=== PATIENT | female | born 1970 | race Caucasian/White ===

== ENCOUNTER 2016-12-09 17:58 | Emergency (ER) | payer MEDICAID ==
[~2016-12-09] VITALS: Wt 87.0 kg
[2016-12-09 19:33] LABS: URINE BLOOD (Dip) POC 1+ (NEGATIVE)
[2016-12-09 20:04] LABS: URINE BLOOD (Dip) POC 2+ (NEGATIVE)
--- NOTE | 2016-12-09 21:16 | RADRPT ---
PROCEDURE: CT abdomen and pelvis without intravenous contrast. CLINICAL INDICATION: Pain. TECHNIQUE: CT of the abdomen/pelvis was performed utilizing axial images with reconstructions in s agittal and coronal planes. The administered radiation dose is CTDI 18.5 mGy, DLP 1000 mGy-cm. COMPARISON: No pertinent prior examinations were submitted for comparison. FINDINGS: Visualized Chest: The visualized lung bases are clear. Abdomen: The liver, spleen, pancreas, gallbladder,and adrenal glands are unremarkable. The kidneys are without hydronephrosis. No definite urinary calculi are seen. There is no evidence of bowel obstruction. The appendix is normal. No intra-abdominal free air is seen. There is no evidence of intra-abdominal adenopathy or free fluid. Pelvis: There is no evidence of pelvic adenopathy. The uterus and ovaries are without enlargement. The uri nary bladder is unremarkable. There is trace pelvic free fluid. Osseous structures: Unremarkable. IMPRESSION: No acute findings. RPTAT: HIKT .Mj Fleming MD, MD Date Time Electronically viewed and signed by .Mj Fleming MD, on 12/09/2016 21:16 .T/
[2016-12-09] MEDS ORDERED: IBUP-1542 PO (21:20)
[2016-12-09] MEDS ORDERED: PHEN-538 PO (21:20)
[2016-12-09] MEDS ORDERED: CEPH-443 PO (21:20)
[2016-12-09] MEDS ORDERED: CEPHALEXIN 500 MG CAP PO ONE (21:30)
[2016-12-09] MEDS ORDERED: PHENAZOPYRIDINE 100 MG TAB PO ONE (21:30)
--- NOTE | 2016-12-09 21:30 | ERD ---
ER Documentation Chief Complaint Date/Time DATE: 12/09/16 TIME: 21:29 Chief Complaint HEMATURIA X 2 DAYS HPI This 46-year-old female presents with dysuria and hematuria for 2 days. She has nausea and low back pain but no fevers or vomiting or flank pain. She has a history of UTI and several years ago and states that it feels little different. She denies any right or left sided abdominal pain her pain is suprapubic. She denies vaginal discharge or bleeding per ROS All systems reviewed and are negative except as per history of present illness. Medications Home Meds Active Scripts Phenazopyridine Hcl* (Pyridium*) 200 Mg Tab, 200 MG PO TID Y for URINARY PAIN, # 6 TAB Prov:ANNE SAUCEDA MD 12/09/16 Cephalexin* (Keflex*) 500 Mg Capsule, 500 MG PO QID for 5 Days, CAP Prov:ANNE SAUCEDA MD 12/09/16 Ibuprofen* (Motrin*) 600 Mg Tab, 600 MG PO Q6, #15 TAB Prov:ANNE SAUCEDA MD 12/09/16 PMhx/Soc History of Surgery: No (cs) Anesthesia Reaction: No Hx Neurological Disorder: No Hx Respiratory Disorders: No Hx Cardiac Disorders: No Hx Psychiatric Problems: No Hx Alcohol Use: No Hx Substance Use: No Hx Tobacco Use: No Smoking Status: Never smoker Physical Exam Vitals Vital Signs Date Time Temp Pulse Resp B/P Pulse Ox O2 Delivery O2 Flow Rate FiO2 12/09/16 18:01 98.0 86 136 71/136 65 Physical Exam Const: [] Alert, [id number] per Head: Atraumatic Eyes: Normal Conjunctiva ENT: Normal External Ears, Nose and Mouth. Neck: Full range of motion..~ No meningismus. Resp: Clear to auscultation bilaterally Cardio: Regular rate and rhythm, no murmurs Abd: Soft, minimal suprapubic tenderness, non distended. Normal bowel sounds .no tenderness at McBurney's point no Rendon sign. Skin: No petechiae or rashes Back: No midline or flank tenderness Ext: No cyanosis, or edema Neur: Awake and alert Psych: Normal Mood and Affect Results 24 hrs Laboratory Tests Test 12/09/16 19:34 12/09/16 20:05 Bedside Urine Blood 1+ 2+ Bedside Urine Glucose (UA) Negative Negative Bedside Urine Ketones (LAB) Negative Negative Bedside Urine Leukocyte Esterase (L Negative Trace Bedside Urine Nitrite (LAB) Negative Negative Bedside Urine Protein (LAB) Negative Negative Bedside Urine pH (LAB) 6.0 8.5 Procedures/MDM Urine shows hemoglobin without leukocytes nitrites or glucose on dip. HCG is negative. CT abdomen and pelvis shows no acute abnormalities going to the radiologist. Patient has dysuria with signs of UTI and was treated for this empirically.. Urine was sent for gonorrhea chlamydia. Signs and symptoms not consistent currently with ovarian abscess, appendicitis, acute abdomen, pyelonephritis. Patient is advised to follow-up with primary doctor this week return to the ER for new or worsening symptoms. Departure Diagnosis: Primary Impression: Dysuria Additional Impression: Hematuria Condition: Stable Patient Instructions: Understanding Urinary Tract Infections (UTIs), Pelvic Pain, Unknown Cause Additional Instructions: CT normal. We will treat for urinary tract infection given symptoms. Recheck for new or worsening symptoms or primary care doctor. vamos a tratar para infeccion. ct normal. Examines normal hoy. Cheque otro vez con thakkar doctor primario en el proximo wang or regresa para mas o nueva simptomas. ANNE SAUCEDA MD Dec 09, 2016 21:30
[2016-12-09 21:48] VITALS: BP 124/60; PULSE 67; RESP 16; TEMP 97.6
== END 2016-12-09 21:48 | disposition home or self-care (01) ==
LOC: FTE 17:58
DX: R30.0 Dysuria (principal); R31.9 Hematuria, unspecified; I10 Essential (primary) hypertension
CPT/HCPCS: 74176; 81003; 87591; Z7502; Z7610

== ENCOUNTER 2017-03-30 18:30 | Emergency (ER) | payer MEDICAID ==
[~2017-03-30] VITALS: Ht 160 cm; Wt 90.0 kg
[~2017-03-30 18:30] MED LIST: CEPH-443 PO; IBUP-1542 PO; PHEN-538 PO
[2017-03-30 18:35] VITALS: Ht 160 cm; Wt 90.0 kg
[2017-03-30] MEDS ORDERED: ONDANSETRON 4 MG INJ IV STA (19:35)
[2017-03-30 20:05] LABS: ADD SCAN DIFF NO
[2017-03-30 20:10] LABS: EOSINOPHILS # 0.1 10^3/ul (0.0-0.5); EOSINOPHILS % 2.1 % (0.0-7.0); HEMATOCRIT 39.8 % (37.0-47.0); HEMOGLOBIN 12.7 g/dl (12.0-16.0); LYMPHOCYTES # 1.4 10^3/ul (0.8-2.9); LYMPHOCYTES % 23.7 % (15.0-51.0); MEAN CORPUSCULAR HEMOGLOBIN 26.8 pg (29.0-33.0); MEAN CORPUSCULAR HGB CONC 31.9 g/dl (32.0-37.0); MEAN PLATELET VOLUME 9.1 fl (7.4-10.4); MONOCYTE # 0.5 10^3/ul (0.3-0.9); MONOCYTES % 8.8 % (0.0-11.0); NEUTROPHIL # 3.8 10^3/ul (1.6-7.5); NEUTROPHILS % 65.2 % (39.0-77.0); PLATELET COUNT 304 10^3/UL (140-415); RED BLOOD COUNT 4.74 10^6/ul (4.20-5.40); RED CELL DISTRIBUTION WIDTH 12.5 % (11.5-14.5); WHITE BLOOD COUNT 5.8 10^3/ul (4.8-10.8)
[2017-03-30 20:17] LABS: ADD UMIC YES; URINE BILIRUBIN (Dip) NEGATIVE (NEGATIVE); URINE BLOOD (Dip) 2+ (NEGATIVE); URINE COLOR LT. YELLOW (YELLOW); URINE GLUCOSE (Dip) NEGATIVE (NEGATIVE); URINE KETONES (Dip) NEGATIVE (NEGATIVE); URINE LEUKOCYTE ESTERASE (Dip) 1+ (NEGATIVE); URINE NITRITE (Dip) NEGATIVE (NEGATIVE); URINE TOTAL PROTEIN (Dip) NEGATIVE (NEGATIVE); URINE UROBILINOGEN (Dip) 0.2 E.U./dL (0.1-1.0)
[2017-03-30 20:23] LABS: ALBUMIN 4.2 g/dl (3.3-4.9); CHLORIDE 99 mmol/L (97-110)
[2017-03-30 20:24] LABS: POTASSIUM 3.7 mmol/L (3.5-5.1); SODIUM 140 mmol/L (135-144)
[2017-03-30 20:26] LABS: ALBUMIN/GLOBULIN RATIO 1.07; ALKALINE PHOSPHATASE 84 IU/L (42-121); ANION GAP 18 (8-16); ASPARTATE AMINO TRANSFERASE 24 IU/L (15-46); BILIRUBIN,INDIRECT 0.8 mg/dl (0-1.1); BILIRUBIN,TOTAL 0.8 mg/dl (0.2-1.3); BLOOD UREA NITROGEN 14 mg/dl (7-20); CARBON DIOXIDE 27 mmol/L (21-31); CREATININE 0.69 mg/dl (0.44-1.00); TOTAL PROTEIN 8.1 g/dl (6.1-8.1)
[2017-03-30 20:27] LABS: ALANINE AMINOTRANSFERASE 30 IU/L (13-69); GLUCOSE 95 mg/dl (70-220)
[2017-03-30 20:33] LABS: SQUAMOUS EPITHELIAL CELL,UR RARE
[2017-03-30 20:39] LABS: TROPONIN-I < 0.012 ng/ml (0.00-0.12)
--- NOTE | 2017-03-30 21:05 | ERD ---
ER Documentation Chief Complaint Date/Time DATE: 03/30/17 TIME: 20:54 Chief Complaint ap x 3 days; n/v started this morning HPI This 46 female presents to emergency department today with reports of nausea vomiting and abdominal pain since yesterday. Patient reports a headache, states she has vomited twice today is having difficulty tolerating solid food able to drink small sips of water. Patient reports she went to her primary care physician and was instructed to come to the emergency department for a more thorough investigation. Patient reports she has a long history of abdominal pain and usually takes Mylanta for it. Patient reports last menstrual period completed today. Denies constipation, diarrhea, chest pain, palpitations, shortness of breath, or dizziness. ROS All systems reviewed and are negative except as per history of present illness. Medications Home Meds Active Scripts Phenazopyridine Hcl* (Pyridium*) 200 Mg Tab, 200 MG PO TID Y for URINARY PAIN, # 6 TAB Prov:ANNE SAUCEDA MD 12/09/16 Cephalexin* (Keflex*) 500 Mg Capsule, 500 MG PO QID for 5 Days, CAP Prov:ANNE SAUCEDA MD 12/09/16 Ibuprofen* (Motrin*) 600 Mg Tab, 600 MG PO Q6, #15 TAB Prov:ANNE SAUCEDA MD 12/09/16 PMhx/Soc History of Surgery: Yes (cs) Anesthesia Reaction: No Hx Neurological Disorder: No Hx Respiratory Disorders: No Hx Cardiac Disorders: Yes (HTN) Hx Psychiatric Problems: No Hx Miscellaneous Medical Probl: Yes (GERD) Hx Alcohol Use: No Hx Substance Use: No Hx Tobacco Use: No Smoking Status: Never smoker Physical Exam Vitals Vital Signs Date Time Temp Pulse Resp B/P Pulse Ox O2 Delivery O2 Flow Rate FiO2 03/30/17 18:35 98.6 93 18 122/80 100 Vitals stable, triage notes reviewed Physical Exam Const: No acute distress Head: Atraumatic Eyes: Normal Conjunctiva, PERRLA, EOMI ENT: Normal External Ears, Nose and Mouth. Mucous membranes Neck: Resp: Chest rises and falls symmetrically clear to auscultation bilaterally, no rales wheezes or rhonchi, no respiratory to Cardio: Regular rate and rhythm, no murmurs S1, S2, no S3, S4 Abd: Soft palpable epigastric and left upper abdominal tenderness, no CVA tenderness, no McBurney point tenderness Skin: Back: No midline or flank tenderness Ext: Neur: Awake and alert Psych: Normal Mood and Affect Result Diagram: 03/30/17194203/30/171942 Results 24 hrs Laboratory Tests Test 03/30/17 19:43 03/30/17 19:45 White Blood Count 5.810^3/ul Red Blood Count 4.7410^6/ul Hemoglobin 12.7g/dl Hematocrit 39.8% Mean Corpuscular Volume 84.0fl Mean Corpuscular Hemoglobin 26.8pg Mean Corpuscular Hemoglobin Concent 31.9g/dl Red Cell Distribution Width 12.5% Platelet Count 05969^3/UL Mean Platelet Volume 9.1fl Neutrophils % 65.2% Lymphocytes % 23.7% Monocytes % 8.8% Eosinophils % 2.1% Basophils % 0.0% Nucleated Red Blood Cells % 0.0/100WBC Neutrophils # 3.810^3/ul Lymphocytes # 1.410^3/ul Monocytes # 0.510^3/ul Eosinophils # 0.110^3/ul Basophils # 0.010^3/ul Nucleated Red Blood Cells # 0.010^3/ul Sodium Level 140mmol/L Potassium Level 3.7mmol/L Chloride Level 99mmol/L Carbon Dioxide Level 27mmol/L Anion Gap 18 Blood Urea Nitrogen 14mg/dl Creatinine 0.69mg/dl Glucose Level 95mg/dl Calcium Level 9.0mg/dl Total Bilirubin 0.8mg/dl Direct Bilirubin 0.00mg/dl Indirect Bilirubin 0.8mg/dl Aspartate Amino Transf (AST/SGOT) 24IU/L Alanine Aminotransferase (ALT/SGPT) 30IU/L Alkaline Phosphatase 84IU/L Troponin I < 0.012ng/ml Total Protein 8.1g/dl Albumin 4.2g/dl Globulin 3.90g/dl Albumin/Globulin Ratio 1.07 Lipase 70U/L Urine Color LT. YELLOW Urine Clarity CLEAR Urine pH 6.0 Urine Specific Printer <=1.005 Urine Ketones NEGATIVE Urine Nitrite NEGATIVE Urine Bilirubin NEGATIVE Urine Urobilinogen 0.2 E.U./dL Urine Leukocyte Esterase 1+ Urine Microscopic RBC 2-5/HPF Urine Microscopic WBC 0-2/HPF Urine Squamous Epithelial Cells RARE Urine Hemoglobin 2+ Urine Glucose NEGATIVE% Urine Total Protein NEGATIVE Current Medications Medications (Trade) Dose Ordered Sig/Eve Route PRN Reason Start Time Stop Time Status Last Admin Dose Admin Ondansetron HCl (Zofran Inj) 4 mg ONCE STAT IV 03/30/17 19:35 03/30/17 19:38 DC 03/30/17 20:02 Interpretation text CBC shows no evidence of hemorrhage or infection Chemistry shows no evidence of significant electrolyte abnormalities or renal insufficiency Liver function tests shows no evidence of acute biliary or hepatic dysfunction Coagulation study showed no concerning coagulpathy Lipase shows no evidence of acute pancreatitis Troponin show no evidence of acute myocardial injury or coronary ischemia Procedures/MDM EKG: Rate/Rhythm: Normal Sinus Rhythm at a ventricular rate of 83 bpm QRS, ST, T-waves: No changes consistent w/ acute ischemia Impression: No evidence of ischemia or arrhythmia This pleasant 46-year-old female presents to the emergency department today with epigastric pain radiating to left upper quadrant patient reports vomiting 2 today with poor p.o. intake, she denies any cardiovascular history, denies shortness of breath, chest pain, or palpitations. Differential diagnosis includes but not limited to acute [place], troponin and ECG normal, acute [place] is not suspected at this time. Pulmonary embolism not suspected, patient denies shortness of breath, chest pain. Aortic aneurysm also not suspected, history and physical exam do not support diagnosis. Patient is treated with IV fluids, Zofran, reports improvement of symptoms. Patient will be discharged home with Zantac, and Zofran strict return to emergency room precautions for chest pain, shortness of breath, nausea vomiting not improving with treatment. I feel the patient is stable for discharge at this time with outpatient management by primary physician I have discussed results, examination findings, the treatment plan with the patient and family present prior to discharge. Indications for emergent reevaluation, side effects of medication were also discussed. All questions were answered. Patient verbalizes understanding and agrees with plan of care. Departure Diagnosis: Primary Impression: Gastritis Gastritis type: unspecified gastritis Chronicity: unspecified Gastritis bleeding: without bleeding Qualified Code: K29.70 - Gastritis without bleeding, unspecified chronicity, unspecified gastritis type Condition: Good Patient Instructions: Gastritis (Adult), Gastritis Vs. Ulcer [facility] Additional Instructions: Thank you for for coming to [facility] for your care today. Please ask your nurse or provider if you have questions about your care today and do not leave until all your questions have been answered. Please use any medications given as directed and follow-up with your doctor (or the doctor you were referred to) in the next 2-3 days. If you do not have a primary care doctor you may follow up at the [facility] (listed below). You may also use motrin and tylenol as needed for fever and/or pain unless instructed otherwise by your provider or nurse. Indications for more urgent follow-up have been discussed, but you may return to the Emergency Department at ANY time for any worrisome or worsening symptoms. If you have abdominal pain, please know that no test or exam you received is perfect and you should follow up within 8 hours for continued pain. If you had any imaging studies today, such as an X-Ray or CT Scan, these studies will be reviewed later by a radiologist. You will be called if there are important findings that were not identified today, so make sure the contact information you provided at registration is correct. If you received any narcotic pain control medicine today, such as Vicodin, Morphine or Dilaudid, your coordination and judgment may be affected for a number of hours. Please do not drive or operate heavy machinery, and you may want someone to assist you at home. If you were given a prescription for narcotic medication, be aware that it is very addictive- use sparingly and only if necessary. MADELINE DE LA CRUZ March 30, 2017 21:04
[2017-03-30] MEDS ORDERED: RANI150T9 PO (21:06)
[2017-03-30] MEDS ORDERED: ONDA4TAB14 PO (21:06)
== END 2017-03-30 22:03 | disposition home or self-care (01) ==
LOC: FTE 18:30
DX: K29.70 Gastritis, unspecified, without bleeding (principal); I10 Essential (primary) hypertension; R11.2 Nausea with vomiting, unspecified
CPT/HCPCS: 36415; 80053; 81001; 83690; 84484; 85025; 93005; 96374; J2405; Z7502; 81003